=== PATIENT | male | born 1960 | race Caucasian/White ===

== ENCOUNTER 2020-03-23 09:40 | Outpatient (REF) | payer OTHER, SELFPAY | END 2020-03-23 09:41 | disposition home or self-care (01) | LOC: HO.LAB 09:40 | PROVIDERS: Visit Provider Internal Medicine | DX: Z20.828 Contact with and (suspected) exposure to other viral communicable diseases (principal) | CPT/HCPCS: 87635 ==

== ENCOUNTER → 2021-07-13 08:07 | Outpatient (BNVA) | payer SELFPAY | PROVIDERS: PCP Internal Medicine; Visit Provider Internal Medicine | DX: Z02.79 Encounter for issue of other medical certificate (principal) ==

== ENCOUNTER 2021-07-13 09:10 | Outpatient (REF) | payer OTHER, SELFPAY ==
--- NOTE | ~2021-07-13 | XR_ITS ---
EXAMINATION: XR CHEST CLINICAL INFORMATION: Cough COMPARISON: None TECHNIQUE: 2 views of the chest were obtained. FINDINGS: No significant abnormality is noted involving the heart, lungs, mediastinum, bony thorax or soft tissues. XR/XR chest 2V IMPRESSION: Unremarkable examination.
== END 2021-07-13 09:11 | disposition home or self-care (01) ==
LOC: HO.XRAY 09:10
PROVIDERS: PCP Internal Medicine; Visit Provider Internal Medicine
DX: R05.9 Cough, unspecified (principal); Z77.090 Contact with and (suspected) exposure to asbestos
CPT/HCPCS: 71046

== ENCOUNTER 2021-08-04 08:03 | Outpatient (REF) | payer OTHER, SELFPAY ==
--- NOTE | ~2021-08-04 | CT_ITS ---
EXAMINATION: CT ABDOMEN AND PELVIS WITHOUT AND WITH CONTRAST CLINICAL INFORMATION: Hematuria. COMPARISON: None TECHNIQUE: Multidetector volumetric imaging was performed of the abdomen and pelvis before and after the IV administration of 85 mL of Omnipaque 300 intravenous contrast. Sagittal and coronal reformatted images were obtained on the technologist's workstation. This CT examination was performed using dose optimization techniques as appropriate, variously including the following: *Automated exposure control *Adjustment of mA and/or kV according to patient size (this includes techniques or standardized protocols for targeted exams where dose is matched to indication/reason for exam; i.e. extremities or head) *Use of iterative reconstruction technique DLP: 672 mGy-cm FINDINGS: LUNG BASES: There is a 5 mm right lower lobe nodule axial image 3 series 8. LIVER, GALLBLADDER, AND BILIARY TREE: The liver is normal in size, shape, and attenuation. No focal hepatic lesion or biliary ductal dilatation is present. The gallbladder is unremarkable with no evidence of radiopaque gallstones, gallbladder wall thickening, or obvious pericholecystic inflammatory changes. PANCREAS: Unremarkable. SPLEEN: Unremarkable. ADRENAL GLANDS: Unremarkable. KIDNEYS AND URETERS: The kidneys are normal in size, shape, and attenuation. No hydronephrosis, hydroureter, or calculi seen. The collecting systems are normal. The ureters are normal. BLADDER: The prostate gland is slightly enlarged and protrudes into the base of the bladder. The bladder is otherwise normal. GASTROINTESTINAL TRACT: The small and large bowel are unremarkable. The appendix is is not seen. There are no inflammatory changes in the right lower quadrant. ABDOMINAL WALL: There is a small umbilical hernia containing fat. LYMPH NODES: Normal. VASCULAR: Unremarkable. PELVIC VISCERA: Unremarkable. OSSEOUS STRUCTURES: There are mild degenerative changes of the lower lumbar spine. CT/CT abdomen pelvis wo/w con IMPRESSION: Slightly enlarged prostate gland that protrudes into the base of the bladder. Otherwise unremarkable CT/IVP. Small umbilical hernia containing fat. Fleischner guidelines were followed.
[2021-08-04] MEDS: iohexoL 350 MG/ML 100 ML INFUS..BTL IV (09:11)
== END 2021-08-04 08:04 | disposition home or self-care (01) ==
LOC: HO.CT 08:03
PROVIDERS: Visit Provider Internal Medicine
DX: R31.9 Hematuria, unspecified (principal)
CPT/HCPCS: 74178; Q9967

== ENCOUNTER → 2022-06-09 10:04 | Outpatient (BNVA) | payer SELFPAY | PROVIDERS: PCP Internal Medicine; Visit Provider Physician Assistant | DX: Z02.79 Encounter for issue of other medical certificate (principal) ==

== ENCOUNTER → 2024-05-15 08:52 | Outpatient (BNVA) | payer SELFPAY | PROVIDERS: PCP Internal Medicine; Visit Provider Internal Medicine | DX: Z02.79 Encounter for issue of other medical certificate (principal) ==